=== PATIENT | female | born 1955 | race Caucasian/White ===

== ENCOUNTER → 2022-09-13 | Outpatient (CLI) | payer MEDICARE ==
--- NOTE | 2022-09-13 11:26 | FL ---
EXAMINATION TYPE: FL barium swallow DATE OF EXAM: 09/13/2022 10:42 AM COMPARISON: None CLINICAL INDICATION:Female, 66 years old with history of R13.10 DYSPHAGIA; PHH, TECHNIQUE: The procedure was explained and patient history elicited. All patient questions were ans wered prior to start of procedure. Multiple spot fluoroscopic images of the esophagus were obtained a fter the oral ingestion of effervescent crystals and liquid barium as the contrast agent. Fluoroscopic time: 16 seconds Fluoroscopic images: 196 Total DAP 1792.13 FINDINGS: The esophagus demonstrates normal primary and secondary peristalsis. Mild tertiary contractions ident ified in the supine position. The esophageal mucosa is smooth without evidence of focal stricture, ul ceration, or abnormal outpouching. 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 No hiatal hernia demonstrated. Spontaneous gastroesophageal reflux was demonstrated. IMPRESSION: 1. 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 2. Gastroesophageal reflux. No hiatal hernia.
== END | disposition home or self-care (01) ==
LOC: RADUSWWP 09:33
PROVIDERS: ATTEND Otolaryngology
DX: K21.9 Gastro-esophageal reflux disease without esophagitis (principal); R93.3 Abnormal findings on diagnostic imaging of other parts of digestive tract; R13.10 Dysphagia, unspecified
CPT/HCPCS: 36415; 74220; 86376